=== PATIENT | female | born 2000 | race Hispanic/Latino ===

== ENCOUNTER → 2023-07-01 | Emergency (ER) | payer SELFPAY ==
[~2023-07-01] MED LIST: FLUORESCEIN SODIUM 1 MG/WRAP ONE; GENTAMICIN 0.3% OPTH DROP 5ML ONE; HYDROCODONE/APAP 7.5/325 MG TAB ONE; IBUPROFEN 400 MG TAB ONE; TETRACAINE HCL 0.5% 4ML OPTH ONE
[2023-07-01 18:11] LABS: Specific Gravity 1.023 (1.005-1.030)
--- NOTE | 2023-07-01 19:37 | ER ---
Nurse's Notes [facility] Name: Valarie Atkinson Age: 23 yrs Sex: Female : 2000 Arrival Date: 07/01/2023 Time: 17:19 Bed 19 Private MD: Diagnosis: Local infection of the skin and subcutaneous tissue, unspecified-left upper eyelid;Unspecified acute conjunctivitis, left eye Presentation: 07/01 17:37 Chief complaint: Left eye pain, redness, swelling, and drainage x 2 days, subjective hb fever today. Coronavirus screen: At this time, the client does not indicate any symptoms associated with coronavirus-19. Ebola Screen: No symptoms or risks identified at this time. Initial Sepsis Screen: Does the patient meet any 2 criteria? No. Patient's initial sepsis screen is negative. Does the patient have a suspected source of infection? No. Patient's initial sepsis screen is negative. Risk Assessment: Do you want to hurt yourself or someone else? Patient reports no desire to harm self or others. Onset of symptoms was June 30, 2023. 17:37 Method Of Arrival: Ambulatory hb 17:37 Acuity: CHARLETTE 4 hb Triage Assessment: 17:40 General: Appears in no apparent distress. Behavior is calm, cooperative. Pain: Pain hb currently is 8 out of 10 on a pain scale. EENT: Reports left eye pain, redness, swelling, itching, and drainage. Neuro: Level of Consciousness is awake, alert, obeys commands, Oriented to person, place, time, situation. Cardiovascular: Patient's skin is warm and dry. Respiratory: Respiratory effort is even, unlabored, Respiratory pattern is regular, symmetrical. GI: No signs and/or symptoms were reported involving the gastrointestinal system. : No signs and/or symptoms were reported regarding the genitourinary system. Derm: Skin is pink, warm \T\ dry. Musculoskeletal: No signs and/or symptoms reported regarding the musculoskeletal system. Historical: - Allergies: 17:39 No Known Allergies; hb - Home Meds: 17:40 None [Active]; hb - PMHx: 17:39 adhd; depressive disorder; PCOS; hb - PSHx: 17:40 None; hb - Immunization history:: Adult Immunizations up to date. - Social history:: Smoking status: Patient reports the use of cigarette tobacco products, smokes one-half pack cigarettes per day. Screenin:03 [facility] ED Fall Risk Assessment (Adult) History of falling in the last 3 months, kc6 including since admission No falls in past 3 months (0 pts) Confusion or Disorientation No (0 pts) Intoxicated or Sedated No (0 pts) Impaired Gait No (0 pts) Mobility Assist Device Used No (0 pt) Altered Elimination No (0 pt) Score/Fall Risk Level 0 - 2 = Low Risk. Abuse screen: Denies threats or abuse. Denies injuries from another. Nutritional screening: No deficits noted. Tuberculosis screening: No symptoms or risk factors identified. Assessment: 18:02 General: Appears in no apparent distress. comfortable, well groomed, well developed, kc6 Behavior is calm, cooperative, appropriate for age. Pain: Complains of pain in left eye. Neuro: Level of Consciousness is awake, alert, obeys commands, Oriented to person, place, time, situation, Appropriate for age. Cardiovascular: Capillary refill < 3 seconds. Respiratory: Airway is patent Trachea midline Respiratory effort is even, unlabored, Respiratory pattern is regular, symmetrical. GI: No signs and/or symptoms were reported involving the gastrointestinal system. : No signs and/or symptoms were reported regarding the genitourinary system. Urine is clear. EENT: Eyes left eye appears to be reddened and swollen. Reports blurred vision in iris of left eye. Derm: No signs and/or symptoms reported regarding the dermatologic system. Skin is intact, is healthy with good turgor, Skin is pink, warm \T\ dry. Musculoskeletal: No signs and/or symptoms reported regarding the musculoskeletal system. Circulation, motion, and sensation intact. Capillary refill < 3 seconds, Range of motion: intact in all extremities. 18:54 Reassessment: Patient appears in no apparent distress at this time. No changes from kc6 previously documented assessment. Patient and/or family updated on plan of care and expected duration. Pain level reassessed. Patient is alert, oriented x 3, equal unlabored respirations, skin warm/dry/pink. 19:30 Reassessment: Patient appears in no apparent distress at this time. No changes from tm6 previously documented assessment. 20:20 Reassessment: Patient appears in no apparent distress at this time. No changes from tm6 previously documented assessment. Vital Signs: 17:37 BP 125 / 82; Pulse 71; Resp 16; Temp 98.2(O); Pulse Ox 100% on R/A; Weight 108.86 kg; hb Height 5 ft. 4 in. ; Pain 8/10; 18:03 BP 124 / 73; Pulse 73; Resp 16 S; Pulse Ox 100% on R/A; kc6 18:54 BP 112 / 68; Pulse 80; Resp 17 S; Pulse Ox 100% on R/A; kc6 19:30 BP 106 / 28; Pulse 72; Resp 19; Pulse Ox 98% on R/A; tm6 20:20 BP 113 / 81; Pulse 72; Resp 19; Temp 98.4(O); Pulse Ox 100% on R/A; tm6 17:37 Body Mass Index 41.20 (108.86 kg, 162.56 cm) hb 17:37 Pain Scale: Adult hb Visual Acuity: 17:56 Left Eye Visual acuity 20/200, Pupil size 3 mm, Normal, React To Light, Reactive To kc6 Accomodation; Right Eye Visual acuity 20/40, Pupil size 3 mm, Normal, React To Light, Reactive To Accomodation; Both Eyes Visual acuity 20/40; Without Lenses; ED Course: 17:24 Patient arrived in ED. ra3 17:33 Christiano Arias PA is PHCP. cp 17:33 Bradley Joshi MD is Attending Physician. cp 17:39 Triage completed. hb 17:43 Arm band placed on. hb 17:46 Lori Middleton, RN is Primary Nurse. kc6 17:57 Patient maintains SpO2 saturation greater than 95% on room air. kc6 18:03 Patient has correct armband on for positive identification. Bed in low position. Call kc6 light in reach. Side rails up X 1. Adult w/ patient. Client placed on continuous cardiac and pulse oximetry monitoring. NIBP monitoring applied. 19:35 Sravani Downs MD is Referral Physician. cp 20:20 No provider procedures requiring assistance completed. Patient did not have IV access tm6 during this emergency room visit. 20:21 Provided Education on: med usage. tm6 Administered Medications: 18:02 Drug: Ibuprofen PO 800 mg PO once Route: PO; kc6 18:11 Drug: Hydrocodone-Acetaminophen PO (7.5 mg-325 mg) 1 tabs PO once; RASS on ADMIN: kc6 Combtv4, Very Agttd3, Agttd2, Rstlss1, AlertClm0, Drwsy-1, Lt Sdtn-2, Mod Sdtn-3, Dp Sdtn-4, UnArsble-5 Route: PO; 18:11 Drug: Tetracaine Ophthalmic Drops 0.5 % 1 drops Ophthalmic once Route: Ophthalmic; kc6 Site: left eye; 19:37 Not Given (Physician Discretion): [id number] mg PO once cp 20:17 Drug: Gentamicin Ophthalmic Drops 0.3 % 1 drops Ophthalmic once; apply to right eye tm6 Route: Ophthalmic; Site: left eye; 20:17 Drug: Clindamycin PO 300 mg PO once Route: PO; tm6 Medication: 20:21 VIS not applicable for this client. tm6 Outcome: 19:36 Discharge ordered by MD. cp 20:20 Discharged to home ambulatory, with family, tm6 20:20 Condition: stable 20:20 Discharge instructions given to patient, family, Instructed on discharge instructions, follow up and referral plans. medication usage, Demonstrated understanding of instructions, follow-up care, medications, Prescriptions given X 3, 20:24 Patient left the ED. tm6 Signatures: Christiano Arias PA PA cp Baxter, Heather, RN RN hb Campbell, Kaitlyn, RN RN 6 Mary Hendricks RN RN 6 Essence Russell ra3
--- NOTE | 2023-07-01 19:37 | EDPHYS ---
Physician Documentation [facility] Name: Valarie Atkinson Age: 23 yrs Sex: Female : 2000 Arrival Date: 07/01/2023 Time: 17:19 Bed 19 Private MD: ED Physician Bradley oJshi HPI: 07/01 18:00 This 23 yrs old Female presents to ER via Ambulatory with complaints of Eye cp Swelling, eye burning, Fever. 18:00 The patient is experiencing pain, redness, swelling of upper eyelid, to the left eye, cp caused by an unknown mechanism. Onset: The symptoms/episode began/occurred 2 day(s) ago. Duration: the symptoms are continuous. Associated signs and symptoms: Pertinent positives: fever, Pertinent negatives: headache, runny nose, sore throat. Patient does not utilize any form of vision correction. Severity of symptoms: in the emergency department the symptoms are unchanged despite home interventions. Historical: - Allergies: 17:39 No Known Allergies; hb - Home Meds: 17:40 None [Active]; hb - PMHx: 17:39 adhd; depressive disorder; PCOS; hb - PSHx: 17:40 None; hb - Immunization history:: Adult Immunizations up to date. - Social history:: Smoking status: Patient reports the use of cigarette tobacco products, smokes one-half pack cigarettes per day. ROS: 18:05 Constitutional: Negative for body aches, chills, fever, poor PO intake, cp 18:05 Eyes: Positive for pain, redness, swelling, of the left upper eyelid, cp 18:05 ENT: Negative for drainage from ear(s), ear pain, sore throat, difficulty swallowing, difficulty handling secretions, 18:05 Respiratory: Negative for cough, shortness of breath, wheezing, 18:05 Abdomen/GI: Negative for abdominal pain, vomiting, diarrhea, constipation, 18:05 All other systems are negative, Exam: 18:10 Constitutional: The patient appears in no acute distress, alert, awake, non-toxic, well cp developed, well nourished, obese, uncomfortable, 18:10 Head/Face: Normocephalic, atraumatic. cp 18:10 Eyes: Periorbital structures: appear normal, Pupils: equal, round, and reactive to light and accomodation, Extraocular movements: intact throughout, Conjunctiva: mild injection left eye. Sclera: no appreciated abnormality, Lids and lashes: mild swelling of left upper lid with no chalazion and/or hordeolum noted. Examination of the other eye reveals no obvious gross abnormality, 18:10 ENT: External ear(s): are unremarkable, Ear canal(s): are normal, clear, TM's: dullness, bilaterally, Nose: is normal, Mouth: Lips: moist, Oral mucosa: moist, Posterior pharynx: Airway: no evidence of obstruction, patent, Tonsils: are normal in appearance, erythema, is not appreciated, exudate, is not appreciated, 18:10 Neck: ROM/movement: is normal, is supple, without pain, no range of motions limitations, Lymph nodes: no appreciated lymphadenopathy, 18:10 Chest/axilla: Inspection: normal, 18:10 Cardiovascular: Rate: normal, Rhythm: regular, 18:10 Respiratory: the patient does not display signs of respiratory distress, Respirations: normal, no use of accessory muscles, no retractions, labored breathing, is not present, Breath sounds: are clear throughout, no decreased breath sounds, no stridor, no wheezing, 18:10 Abdomen/GI: Inspection: abdomen appears normal, 18:10 Skin: no rash present. Vital Signs: 17:37 BP 125 / 82; Pulse 71; Resp 16; Temp 98.2(O); Pulse Ox 100% on R/A; Weight 108.86 kg; hb Height 5 ft. 4 in. ; Pain 8/10; 18:03 BP 124 / 73; Pulse 73; Resp 16 S; Pulse Ox 100% on R/A; kc6 18:54 BP 112 / 68; Pulse 80; Resp 17 S; Pulse Ox 100% on R/A; kc6 19:30 BP 106 / 28; Pulse 72; Resp 19; Pulse Ox 98% on R/A; tm6 20:20 BP 113 / 81; Pulse 72; Resp 19; Temp 98.4(O); Pulse Ox 100% on R/A; tm6 17:37 Body Mass Index 41.20 (108.86 kg, 162.56 cm) hb 17:37 Pain Scale: Adult hb Visual Acuity: 17:56 Left Eye Visual acuity 20/200, Pupil size 3 mm, Normal, React To Light, Reactive To kc6 Accomodation; Right Eye Visual acuity 20/40, Pupil size 3 mm, Normal, React To Light, Reactive To Accomodation; Both Eyes Visual acuity 20/40; Without Lenses; MDM: 17:33 Patient medically screened. cp 19:35 Data reviewed: vital signs, nurses notes, and as a result, I will discharge patient. cp 19:35 Differential diagnosis: Allergic conjunctivitis in Infectious conjunctivitis in cp cellulitis, abscess. Counseling: I had a detailed discussion with the patient and/or guardian regarding the historical points, exam findings, and any diagnostic results supporting the discharge/admit diagnosis, to return to the emergency department if symptoms worsen or persist or if there are any questions or concerns that arise at home. Response to treatment: the patient's symptoms have mildly improved after treatment, and as a result, I will discharge patient. 07/01 17:47 Order name: Test, Urine; Complete Time: 19:34 [facility] 07/01 19:34 Interpretation: Reviewed. 07/01 17:41 Order name: Misc. Order: MAY GIVE MEDS IF PATIENT NOT ; Complete Time: 18:12 cp 07/01 17:41 Order name: Eye Tray; Complete Time: 17:49 cp 07/01 17:41 Order name: Fluoresene Opth strip; Complete Time: 17:56 cp 07/01 17:41 Order name: Visual Acuity; Complete Time: 17:56 cp Administered Medications: 18:02 Drug: Ibuprofen PO 800 mg PO once Route: PO; kc6 18:11 Drug: Hydrocodone-Acetaminophen PO (7.5 mg-325 mg) 1 tabs PO once; RASS on ADMIN: kc6 Combtv4, Very Agttd3, Agttd2, Rstlss1, AlertClm0, Drwsy-1, Lt Sdtn-2, Mod Sdtn-3, Dp Sdtn-4, UnArsble-5 Route: PO; 18:11 Drug: Tetracaine Ophthalmic Drops 0.5 % 1 drops Ophthalmic once Route: Ophthalmic; kc6 Site: left eye; 19:37 Not Given (Physician Discretion): [id number] mg PO once cp 20:17 Drug: Gentamicin Ophthalmic Drops 0.3 % 1 drops Ophthalmic once; apply to right eye tm6 Route: Ophthalmic; Site: left eye; 20:17 Drug: Clindamycin PO 300 mg PO once Route: PO; tm6 Disposition Summary: 07/01/23 19:36 Discharge Ordered Notes: Location: Home cp Problem: new cp Symptoms: have improved cp Condition: Stable cp Diagnosis - Local infection of the skin and subcutaneous tissue, unspecified - left upper eyelidcp - Unspecified acute conjunctivitis, left eye cp Followup: cp - With: Sravani Downs MD - When: 2 - 3 days - Reason: Recheck today's complaints Discharge Instructions: - Discharge Summary Sheet cp - Cellulitis, Adult cp - Bacterial Conjunctivitis, Adult cp - How to Use Eye Drops and Eye Ointments cp Forms: - Medication Reconciliation Form cp - Thank You Letter cp - Antibiotic Education cp - Prescription Opioid Use cp - Patient Portal Instructions cp - Leadership Thank You Letter cp - Work release form tm6 Prescriptions: - Clindamycin HCl 300 mg Oral Capsule - take 1 capsule ORAL route every 6 hours for 10 days; 40 capsule; Refills: 0, cp Product Selection Permitted - Gentamicin 0.3 % Ophthalmic drops - instill 1 drop OPHTHALMIC route every 4 hours for 7 days; 1 unit; Refills: 0, cp Product Selection Permitted - Ibuprofen 800 mg Oral Tablet - take 1 tablet ORAL route every 8 hours As needed take with food; 30 tablet; cp Refills: 0, Product Selection Permitted Signatures: Dispatcher [employer] Christiano Triana PA PA cp Jacqui Luciano RN HARIS Lori Middleton RN RN kc6 Mary Hendricks RN RN tm6
[2023-07-01 20:36] VITALS: BP 113/81; TEMP 98.4; O2SAT 100
== END ==
LOC: ER 17:19
DX: H10.32 Unspecified acute conjunctivitis, left eye (principal); L08.9 Local infection of the skin and subcutaneous tissue, unspecified; F17.210 Nicotine dependence, cigarettes, uncomplicated
CPT/HCPCS: 81025; 99284

== ENCOUNTER 2024-02-12 19:38 | Emergency (ER) | payer SELFPAY ==
--- NOTE | 2024-02-12 20:17 | RAD REPORT ---
EXAMINATION: ONE VIEW CHEST XR CLINICAL INDICATION: Female, 24 years old.dizziness, near syncope TECHNIQUE: 1 View, AP supine, X-ray of the chest was performed. [id number]. COMPARISON: No prior exam. FINDINGS: Lungs and pleura: Clear lungs. No effusion. Heart and mediastinum: Normal heart size. Unremarkable mediastinal contours. Osseous structures: No acute abnormality. Tubes/lines: None Other: None. IMPRESSION: No acute intrathoracic abnormality.
[2024-02-12 20:29] LABS: Sqamous Epithelial <5 /HPF (None Seen); Urine Bacteria <20 /HPF (<20); Urine Bilirubin NEGATIVE (Negative); Urine Blood Negative (Negative); Urine Clarity Clear (Clear); Urine Color Light-Yellow (Yellow); Urine Culture Reflex Order NOT NEEDED; Urine Glucose NEGATIVE (Negative); Urine Ketones NEGATIVE (Negative); Urine Microscopic Reflex YN ORDER UMIC; Urine Mucus Slight /HPF (None Seen); Urine Nitrite NEGATIVE (Negative); Urine Protein NEGATIVE (Negative); Urine RBC <5 /HPF (None Seen); Urine Urobilinogen Normal (Normal); Urine WBC <5 /HPF (<5)
[2024-02-12 20:39] LABS: Absolute Basophils 0.1 K/uL (0-0.5); Absolute Eosinophils 0.2 K/uL (0-0.5); Absolute Lymphocytes (CBC) 2.2 K/uL (0.7-4.9); Absolute Monocytes 0.7 K/uL (0.1-1.3); Absolute Neutrophil 5.8 K/uL (1.8-8.0); Basophils % 0.6 % (0-1.3); Eosinophils % 2.7 % (0-4.4); Hematocrit 41.1 % (36.0-45.0); Hemoglobin 13.8 g/dL (12.0-15.0); Lymphocytes % 24.6 % (15.3-44.8); MCH 27.2 pg (27.0-35.0); MCHC 33.6 g/dL (32.0-36.0); MCV 81.1 fL (80-100); MPV 8.6 fL (7.6-11.3); Monocytes % 7.6 % (3.3-12.3); Neutrophils % 64.5 % (41.7-73.7); PT Prothrombin Time 12.4 SECONDS (9.4-12.5); PTT, Activated Partial Thromb 38.6 SECONDS (24.3-36.9); Platelets 427 thou/uL (152-406); Protime INR 1.11; RBC Red Blood Cell Count 5.07 M/uL (3.86-4.86)
[2024-02-12 20:48] LABS: ALT/SGPT 86 U/L (13-56); AST/SGOT 37 U/L (15-37); Albumin 4.1 g/dL (3.4-5.0); Albumin/Globulin Ratio 0.8 (1.1-1.8); Alkaline Phosphatase 110 U/L (45-117); Anion Gap 9.6 mEq/L (5.0-15.0); BUN Blood Urea Nitrogen 12 mg/dL (7-18); Bicarbonate 25 mEq/L (21-32); Bilirubin Total 0.3 mg/dL (0.2-1.0); Globulin 5.1 g/dL (2.3-3.5); Glomerular Filtration Rate 97 ml/min (=/>90); Glucose Level 116 mg/dL (74-106); Magnesium 1.9 mg/dL (1.6-2.4); Potassium 3.6 mEq/L (3.5-5.1); Protein, Total 9.2 g/dL (6.4-8.2); Sodium Level 139 mEq/L (136-145)
[2024-02-12 20:53] LABS: Bilirubin Direct < 0.2 mg/dL (0-0.2); Bilirubin Indirect, Calculated 0.1 mg/dL (0.2-0.8); Troponin High Sensitivity < 3.0 pg/mL (<58.9)
[2024-02-12] MEDS ORDERED: MECLIZINE HCL 12.5 MG TAB ONE (21:27)
[2024-02-12] MEDS ORDERED: NA CHLORIDE 0.9% 1,000 ML ONE (21:28)
--- NOTE | 2024-02-12 22:17 | EDPHYS ---
Physician Documentation [facility] Name: Valarie Atkinson Age: 24 yrs Sex: Female : 2000 Arrival Date: 02/12/2024 Time: 19:38 Bed 14 Private MD: ED Physician Christiano Santos HPI: 02/11 21:41 This 24 yrs old Female presents to ER via Ambulatory with complaints of kb Dizziness - x3days. 21:41 Pt is a 24 year old female who presents for dizziness that started 3 days ago. States kb symptoms were aggravated by change of position on the first day, but now symptoms come and go without any alleviating or aggravating factors. Came in today because she was out shopping and felt like she was going to pass out. . [employer]: 21:40 Not kj2 Historical: - Allergies: 19:50 No Known Allergies; cm10 - PMHx: 19:50 adhd; depressive disorder; PCOS; cm10 - Immunization history:: Adult Immunizations up to date. - Infectious Disease History:: Denies. - Social history:: Smoking status: Patient denies any tobacco usage or history of. ROS: 21:38 Constitutional: As per HPI kb Exam: 21:00 Constitutional: This is a well developed, well nourished patient who is awake, alert, kb and in no acute distress. Head/Face: Normocephalic, atraumatic. ENT: Moist Mucous membranes Cardiovascular: Regular rate Respiratory: Respirations even and unlabored. No increased work of breathing. Talking in full sentences Abdomen/GI: Soft, non-tender. No distention Skin: Warm, dry with normal turgor. Normal color. MS/ Extremity: Pulses equal, no cyanosis. Neurovascular intact. Full, normal range of motion. Neuro: Awake and alert, GCS 15, oriented to person, place, time, and situation. Moves all extremities. Normal gait. 21:00 ECG was reviewed by the Attending Physician. Vital Signs: 19:48 BP 156 / 104; Pulse 100; Resp 16; Temp 98.6; Pulse Ox 100% on R/A; Weight 108.86 kg; cm10 Height 5 ft. 4 in. ; Pain 0/10; 21:16 BP 123 / 82 Supine; Pulse 91 LA; Resp 16; Pulse Ox 100% on R/A; vk 21:17 BP 129 / 87 Sitting; Pulse 88 LA; Resp 16; Pulse Ox 100% on R/A; vk 21:17 BP 129 / 85 Standing; Pulse 92 LA; Resp 16; Pulse Ox 100% on R/A; vk 22:30 BP 121 / 74; Pulse 86; Resp 20; Temp 98; Pulse Ox 99% ; kj2 19:48 Body Mass Index 41.20 (108.86 kg, 162.56 cm) cm10 19:48 Pain Scale: Adult cm10 MDM: 19:42 Patient medically screened. kb 21:38 Data reviewed: vital signs, nurses notes. kb 22:16 Differential diagnosis: cardiac arrhythmia, idiopathic dizziness, near-syncope, kb vertigo. Test considered but Not performed: CT: ct head considered but pt has no neuro deficits. Counseling: I had a detailed discussion with the patient and/or guardian regarding the historical points, exam findings, and any diagnostic results supporting the discharge/admit diagnosis, lab results, radiology results, the need for outpatient follow up, a family practitioner, to return to the emergency department if symptoms worsen or persist or if there are any questions or concerns that arise at home. 02/11 19:53 Order name: Basic Metabolic Panel; Complete Time: 20:57 kb 02/11 19:53 Order name: CBC with Diff; Complete Time: 20:40 kb 02/11 19:53 Order name: Hepatic Function; Complete Time: 20:57 kb 02/11 19:53 Order name: Magnesium; Complete Time: 20:57 kb 02/11 19:53 Order name: Test, Urine; Complete Time: 20:27 kb 02/11 19:53 Order name: Protime (+inr); Complete Time: 20:40 kb 02/11 19:53 Order name: Ptt, Activated; Complete Time: 20:40 kb 02/11 19:53 Order name: Troponin High Sensitivity; Complete Time: 20:57 kb 02/11 19:53 Order name: Urinalysis w/ reflexes; Complete Time: 20:33 kb 02/11 19:53 Order name: Chest Single View XRAY; Complete Time: 20:19 kb 02/11 19:53 Order name: EKG; Complete Time: 19:54 kb 02/11 19:53 Order name: Cardiac monitoring; Complete Time: 20:20 kb 02/11 19:53 Order name: EKG - Nurse/Tech; Complete Time: 20:43 kb 02/11 19:53 Order name: IV Saline Lock; Complete Time: 20:14 kb 02/11 19:53 Order name: Labs collected and sent; Complete Time: 20:14 kb 02/11 19:53 Order name: NPO; Complete Time: 20:20 kb 02/11 19:53 Order name: O2 Per Protocol; Complete Time: 20:20 kb 02/11 19:53 Order name: O2 Sat Monitoring; Complete Time: 20:20 kb 02/11 19:53 Order name: Orthostatics; Complete Time: 21:19 kb 02/11 20:59 Order name: Misc. Order: please complete orthostatics; Complete Time: 21:19 kb EC:00 Rate is 103 beats/min. Rhythm is regular. QRS [place] is Normal. AL interval is normal at kb 134 msec. QRS interval is normal at 96 msec. QT interval is normal at 455 msec. Administered Medications: 21:33 Drug: Meclizine PO 25 mg PO once Route: PO; kj2 22:42 Follow up: Response: No adverse reaction kj2 21:34 Drug: NS 0.9% IV 1000 ml IV at 1000 ml once Route: IV; Rate: 1000 ml; Site: right kj2 antecubital; 22:42 Follow up: IV Status: Completed infusion; IV Intake: 1000ml kj2 Disposition Summary: 02/12/24 22:17 Discharge Ordered Notes: Location: Home kb Condition: Stable kb Diagnosis - Dizziness and giddiness kb Followup: kb - With: Emergency Department - When: As needed - Reason: Worsening of condition Followup: kb - With: Private Physician - When: 2 - 3 days - Reason: Recheck today's complaints, Continuance of care, Re-evaluation by your physician Discharge Instructions: - Discharge Summary Sheet kb - Vertigo, Ovky-us-Hgis kb - Dizziness, Wiur-ak-Hhfs kb Forms: - Medication Reconciliation Form kb - Antibiotic Education kb - Prescription Opioid Use kb - Patient Portal Instructions kb - Leadership Thank You Letter kb Prescriptions: - Meclizine 25 mg Oral Tablet - take 1 tablet ORAL route every 8 hours As needed; 30 tablet; Refills: 0, kb Product Selection Permitted Signatures: Dispatcher [employer] EDMildred Guaman FNP-C FNP-Ckb Martinez, Nidhi, RN RN cm10 Quyen Chan RN RN kj2 Corrections: (The following items were deleted from the chart) 19:54 19:54 BASIC METABOLIC PANEL+C.LAB.BRZ ordered. EDMS EDMS 19:54 19:54 CBC+H.LAB.BRZ ordered. EDMS EDMS 19:54 19:54 HEPATIC FUNCTION+C.LAB.BRZ ordered. EDMS EDMS 19:54 19:54 MAGNESIUM+C.LAB.BRZ ordered. EDMS EDMS 19:54 19:54 Test, Urine+UC.LAB.BRZ ordered. EDMS EDMS 19:54 19:54 PROTIME (+INR)+COAG.LAB.BRZ ordered. EDMS EDMS 19:54 19:54 PTT, ACTIVATED+COAG.LAB.BRZ ordered. EDMS EDMS 19:54 19:54 Troponin High Sensitivity+C.LAB.BRZ ordered. EDMS EDMS 19:54 19:54 Urinalysis+U.LAB.BRZ ordered. EDMS EDMS
--- NOTE | 2024-02-12 22:17 | ER ---
Nurse's Notes [facility] Name: Valarie Atkinson Age: 24 yrs Sex: Female : 2000 Arrival Date: 02/12/2024 Time: 19:38 Bed 14 Private MD: Diagnosis: Dizziness and giddiness Presentation: 02/11 19:48 Chief complaint: Patient states: Dizziness X3 days. PT states that she feels like the cm10 room is spinning and feels like she is going to pass out. Pt reports having a headache yesterday and decreased energy. Coronavirus screen: Client denies travel out of the [place] in the last 14 days. Ebola Screen: Patient denies travel to an Ebola-affected area in the 21 days before illness onset. No symptoms or risks identified at this time. Initial Sepsis Screen: Does the patient meet any 2 criteria? HR > 90 bpm. No. Patient's initial sepsis screen is negative. Does the patient have a suspected source of infection? No. Patient's initial sepsis screen is negative. Risk Assessment: Do you want to hurt yourself or someone else? Patient reports no desire to harm self or others. Onset of symptoms was February 09, 2024. 19:48 Method Of Arrival: Ambulatory cm10 19:48 Acuity: CHARLETTE 3 cm10 Triage Assessment: 19:50 General: Appears in no apparent distress. comfortable, Behavior is calm, cooperative. cm10 Pain: Denies pain. Neuro: No deficits noted. Level of Consciousness is awake, alert, obeys commands, Oriented to person, place, time, situation, Appropriate for age Reports dizziness. Respiratory: No deficits noted. Airway is patent Respiratory effort is even, unlabored, Respiratory pattern is regular, symmetrical. NUCLEAR MEDICAL TECH: 21:40 Not kj2 Historical: - Allergies: 19:50 No Known Allergies; cm10 - PMHx: 19:50 adhd; depressive disorder; PCOS; cm10 - Immunization history:: Adult Immunizations up to date. - Infectious Disease History:: Denies. - Social history:: Smoking status: Patient denies any tobacco usage or history of. Screenin:15 [facility] ED Fall Risk Assessment (Adult) History of falling in the last 3 months, kj2 including since admission No falls in past 3 months (0 pts) Confusion or Disorientation No (0 pts) Intoxicated or Sedated No (0 pts) Impaired Gait No (0 pts) Mobility Assist Device Used No (0 pt) Altered Elimination No (0 pt) Score/Fall Risk Level 0 - 2 = Low Risk Maintained a safe environment, Hourly rounding (assess needs \T\ fall precautionary measures) done. Abuse screen: Denies threats or abuse. Denies injuries from another. Nutritional screening: No deficits noted. Tuberculosis screening: No symptoms or risk factors identified. Assessment: 20:15 General: Appears in no apparent distress. uncomfortable, Behavior is calm, cooperative. kj2 Pain: Denies pain. Neuro: Level of Consciousness is awake, alert, obeys commands, Oriented to person, place, time, situation, Reports dizziness, since THE LAST 3 DAYS. Cardiovascular: Patient's skin is warm and dry. Respiratory: Airway is patent Respiratory effort is even, unlabored. GI: GI: Abdomen is non-distended. : No signs and/or symptoms were reported regarding the genitourinary system. 21:15 Reassessment: Patient and/or family updated on plan of care and expected duration. Pain kj2 level reassessed. Patient is alert, oriented x 3, equal unlabored respirations, skin warm/dry/pink. 22:32 Reassessment: Patient appears in no apparent distress at this time. Patient and/or kj2 family updated on plan of care and expected duration. Pain level reassessed. Patient is alert, oriented x 3, equal unlabored respirations, skin warm/dry/pink. Vital Signs: 19:48 BP 156 / 104; Pulse 100; Resp 16; Temp 98.6; Pulse Ox 100% on R/A; Weight 108.86 kg; cm10 Height 5 ft. 4 in. ; Pain 0/10; 21:16 BP 123 / 82 Supine; Pulse 91 LA; Resp 16; Pulse Ox 100% on R/A; vk 21:17 BP 129 / 87 Sitting; Pulse 88 LA; Resp 16; Pulse Ox 100% on R/A; vk 21:17 BP 129 / 85 Standing; Pulse 92 LA; Resp 16; Pulse Ox 100% on R/A; vk 22:30 BP 121 / 74; Pulse 86; Resp 20; Temp 98; Pulse Ox 99% ; kj2 19:48 Body Mass Index 41.20 (108.86 kg, 162.56 cm) cm10 19:48 Pain Scale: Adult cm10 ED Course: 19:42 Patient arrived in ED. ra3 19:42 Mild[facility] Waddell [facility]C [facility] kb 19:42 Christiano Santos MD is Attending Physician. kb 19:50 Triage completed. cm10 19:50 Arm band placed on Patient placed in an exam room, on a stretcher. cm10 20:12 Chest Single View XRAY In Process Unspecified. EDMS 20:14 Quyen Chan, RN is Primary Nurse. kj2 20:15 Patient has correct armband on for positive identification. Bed in low position. Call kj2 light in reach. Adult w/ patient. Provided Education on: CALL LIGHT, FALL PRECAUTIONS. 20:19 Inserted saline lock: 22 gauge in right antecubital area, using aseptic technique. vk Blood collected. Flushed with 10 mL NS. 20:19 Initial lab(s) drawn, by me, sent to lab. vk 20:19 Urine collected: clean catch specimen, clear. vk 20:20 Basic Metabolic Panel Sent. vk 20:20 CBC with Diff Sent. vk 20:20 Hepatic Function Sent. vk 20:20 Magnesium Sent. vk 20:20 Test, Urine Sent. vk 20:20 Urinalysis w/ reflexes Sent. vk 20:20 Troponin High Sensitivity Sent. vk 20:20 Ptt, Activated Sent. vk 20:20 Protime (+inr) Sent. vk 20:43 EKG done, by ED staff. vk 21:39 No provider procedures requiring assistance completed. kj2 22:33 IV discontinued, intact, bleeding controlled, No redness/swelling at site. Pressure kj2 dressing applied. Administered Medications: 21:33 Drug: Meclizine PO 25 mg PO once Route: PO; kj2 22:42 Follow up: Response: No adverse reaction kj2 21:34 Drug: NS 0.9% IV 1000 ml IV at 1000 ml once Route: IV; Rate: 1000 ml; Site: right kj2 antecubital; 22:42 Follow up: IV Status: Completed infusion; IV Intake: 1000ml kj2 Medication: 21:39 VIS not applicable for this client. kj2 Intake: 22:42 IV: 1000ml; Total: 1000ml. kj2 Outcome: 22:17 Discharge ordered by . kb 22:32 Discharged to home ambulatory, kj2 22:32 Condition: stable 22:32 Discharge instructions given to patient, Instructed on discharge instructions, follow up and referral plans. medication usage, Demonstrated understanding of instructions, follow-up care, medications, 22:43 Patient left the ED. kj2 Signatures: Dispatcher [employer] EDMildred Guaman, TAPAN-Colin PHELAN-Nidhi Oviedo, RN RN cm10 Essence Russell 3 Yulia Tarango Krystal, RN RN kj2
[2024-02-13 00:39] VITALS: BP 121/74; TEMP 98; O2SAT 99
--- NOTE | 2024-02-13 12:26 | EKG ---
Test Date: 2024-02-12 Test Time: 20:38:18 Plate Setter: PATRICIA MEASUREMENT RESULTS: Intervals: Rate: 103 NM: 134 QRSD: 96 QT: 348 QTc: 455 [place]: P: 43 NM: 134 QRS: 35 T: 43 INTERPRETIVE STATEMENTS: Sinus tachycardia Cannot rule out Anterior infarct, age undetermined Abnormal ECG No previous ECG available for comparison Electronically Signed On 02-13-24 12:25:00 CDT by Austen Tubbs
== END 2024-02-12 22:43 | disposition home or self-care (01) ==
LOC: ER 19:38
DX: R42 Dizziness and giddiness (principal)
CPT/HCPCS: 36415; 71045; 80048; 80076; 81001; 81025; 83735; 84484; 85025; 85610; 85730; 93005; 96360; 99284; J7030; J8597